=== PATIENT | female | born 1970 | race Caucasian/White ===

== ENCOUNTER 2021-02-21 09:22 | Emergency (ER) | payer OTHER, SELFPAY ==
[2021-02-21 09:23] VITALS: BP 152/85; PULSE 103; RESP 22; TEMP 36.6; O2SAT 98; BMI 41.5
--- NOTE | 2021-02-21 09:40 | VDLE_ITS ---
Reason For Study: Swelling Procedure LEFT This is a venous duplex using B-mode, color GSV is normal. flow and spectral Doppler. CFV is compressible, spontaneous, phasic, Exam performed portable in ED. competent, and demonstrates normal A preliminary report was called and/or faxed augmentation. to [facility]. FV is compressible, spontaneous, phasic, competent and demonstrates normal augmentation. POP V is compressible, spontaneous, phasic, competent and demonstrates normal augmentation. T/P Trunk is compressible. PTV is compressible. LT PerV is compressible. VL/Venous Duplex US, Unilateral Interpretation Summary There is no evidence of left lower extremity deep vein thrombosis. Left great s aphenous vein appears patent and compressible segmentally. Ordering Physician: Jose Alberto Lang Performed By: Brunilda Casas RVT
--- NOTE | 2021-02-21 09:44 | EX.ED.DYSGE1 ---
HPI History of Present Illness Chief Complaint: Edema Informant: patient Onset/Context/Timing Onset: Days Context: Gradual Onset Timing: Continuous Current Severity: Mild Maximum Severity: Mild Narrative Narrative: 50-year-old female has a history of orthostatic hypotension, fibromyalgia, gastroparesis, prior DVTs on Xarelto and nutcracker syndrome. Patient states she has had swelling in her left leg for some time is gotten worse. She has had prior DVTs. She is currently on a blood thinner but wants to be evaluated. She denies any chest pain. Also states she has a headache and would like something for that. Also believes she needs IV fluids. Prior similar symptoms: Yes Recent Illness/Hospitalization: No [facility] Medical History (Updated 02/21/21 @ 10:[address] Jose Alberto Lang MD) Anxiety Depression Fibromyalgia Gastroparesis Hypothyroid Home Medications alprazolam [Xanax] 0.5 mg PO BID PRN 02/21/21 [History Last Taken Unknown] amitriptyline 75 mg PO DAILY 02/21/21 [History Last Taken Unknown] buspirone 10 mg PO TID 02/21/21 [History Last Taken Unknown] celecoxib [Celebrex] 100 mg PO BID 02/21/21 [History Last Taken Unknown] cyclobenzaprine [Flexeril] 5 mg PO TID PRN 02/21/21 [History Last Taken Unknown] duloxetine [Cymbalta] 120 mg PO DAILY 02/21/21 [History Last Taken Unknown] levothyroxine [Synthroid] 50 mcg PO DAILY 02/21/21 [History Last Taken Unknown] montelukast [Singulair] 10 mg PO DAILY 02/21/21 [History Last Taken Unknown] rivaroxaban [Xarelto] 20 mg PO DAILY 02/21/21 [History Last Taken Unknown] trazodone 150 mg PO QHS 02/21/21 [History Last Taken Unknown] Allergy/AdvReac Type Severity Reaction Status Date / Time Sulfa (Sulfonamide Allergy Anaphylaxis Verified 02/21/21 09:26 Antibiotics) Social History Smoking Status: Never smoker ROS ROS ED ROS Narrative Headache. Left leg swelling. Review of Systems ROS Unobtainable: Denies due to encephalopathy Constitutional Constitutional ED: Reports fever(s) and subjective Eyes Eyes: Denies change in vision ENT ENT ED: Denies ear pain Cardiovascular Cardiovascular: Denies chest pain Respiratory/Chest Respiratory/Chest: Denies cough or dyspnea Gastrointestinal Gastrointestinal: Denies abdominal pain Genitourinary Genitourinary ED: Denies dysuria Musculoskeletal Musculoskeletal: Denies myalgias Integumentary Denies rash Neurologic Neurologic: Reports headache(s) Psychiatric Psychiatric: Denies depression Endocrine Endocrinology: Denies polyuria Allergic/Immunologic Allergic/Immunologic ED: Denies urticaria EXAM Physical Exam Narrative Exam Narrative: Treatment no acute distress vital signs stable afebrile. HEENT exam unremarkable. Moist mucous memories. Neck nontender no lymphadenopathy. Lungs clear to auscultation bilaterally. Heart regular rhythm no murmur. Abdomen soft nontender normal bowel sounds no peritoneal signs. Moving all 4 extremities neurovascular intact. Left leg has trace edema compared to the right. Both lower extremities are neurovascular intact with normal motor strength and sensation. Normal range of motion. There is no cords. Neurologically she is awake alert with no focal motor deficits. Const Vital Signs: 02/21/21 09:23 02/21/21 10:12 Temperature 97.9 F Temperature Source Temporal Pulse Rate 103 H Respiratory Rate 22 H Respiratory Effort Normal Non-Labored Respiratory Pattern Normal Blood Pressure 152/85 H Blood Pressure Mean 107 Pulse Ox 98 Oxygen Delivery Method Room Air Positive well nourished, well developed and obese; Negative for cachectic, contractures or unkempt General Appearance ED: well developed and NAD; Negative for unkempt, cachectic, contractures, cyanotic or diaphoretic Nutritional Appearance: obese; Negative for cachectic HEENT Reports moist mucous membranes Negative for trauma or tenderness Eyes PERRL and EOMs intact bilaterally Neck no lymphadenopathy, supple and no JVD General: Negative for tenderness Chest Wall inspection of chest normal and palpation of chest normal Resp normal respiratory effort and clear to auscultation bilaterally Auscultation: Negative for rales, rhonchi or wheezes Cardio regular rate, regular rhythm, S1 normal heart sound, S2 normal heart sound and no murmurs GI normal to inspection, nondistended, normoactive bowel sounds, non-tender, non-distended and no masses Auscultation: normoactive bowel sounds Palpation: soft; Negative for tender, guarding or rebound tenderness present Back/Spine no CVA tenderness General Back: Negative for CVA tenderness Extremity normal to inspection Extremity Narrative: Trace edema and tenderness left lower leg. Both lower extremities are neurovascular intact with normal motor strength and sensation. No cellulitis. General Extremety ED: Yes edema and tenderness General Extremity: edema Neuro oriented x3 Sensorium / Orientation: alert; Negative for orientation impaired, lethargic or stuporous Motor Exam: strength 5/5 throughout Psych mental status grossly normal Appearance: Negative for unkempt Mood & Affect: Negative for depressed or tearful Skin no rashes or lesions noted and no wounds MDM MDM MDM Narrative Medical decision making narrative: 50-year-old left lower extremity swelling with a history of DVTs. Ultrasound being obtained. I do not know if that will clinically change anything because she is already on Xarelto. He is also requesting IV fluids and something for headache she will be given p.o. Tylenol. And a liter normal saline. Clinically her exam is benign. She does not need any labs at this time. Repeat exam patient is doing well at 10:50 AM and will be discharged home. Lab Data Attestation: I reviewed the patient's lab results. Radiography Diagnostic Testing: Present loss control technician the ultrasound noninvasive study of the left lower extremity showed no DVT. Discussed results with the patient. Discharge Plan Triage Chief Complaint: Edema ED Provider: Jose Alberto Lang Dx/Rx/DC Orders Clinical Impression: Edema of left lower extremity Instructions: ED Peripheral Edema, Unilateral Prescriptions: No Action amitriptyline 75 mg Tablet 75 mg PO DAILY RF: 0 alprazolam [Xanax] 0.5 mg Tablet 0.5 mg PO BID PRN (Reason: Anxiety) RF: 0 levothyroxine [Synthroid] 50 mcg Tablet 50 mcg PO DAILY RF: 0 trazodone 150 mg Tablet 150 mg PO QHS RF: 0 buspirone 10 mg Tablet 10 mg PO TID RF: 0 montelukast [Singulair] 10 mg Tablet 10 mg PO DAILY RF: 0 celecoxib [Celebrex] 100 mg Capsule 100 mg PO BID RF: 0 cyclobenzaprine [Flexeril] 5 mg Tablet 5 mg PO TID PRN (Reason: muscle spasms) RF: 0 duloxetine [Cymbalta] 60 mg Capsule,Delayed Release(Dr/Ec) 120 mg PO DAILY RF: 0 Xarelto 20 mg Tablet 20 mg PO DAILY RF: 0 Referrals: Erik Bradley [Other] (Follow-up with your doctor as needed.) Activity Restrictions/Additional Instructions: Continue current medications. Follow-up with your doctor as needed. Your leg noninvasive study showed no DVT. Disposition Disposition: Home, Self Care
[2021-02-21] MEDS: Acetaminophen 500 MG Tablet 1000 MG PO (10:03)
[2021-02-21] MEDS: 0.9% Normal Saline 1,000 ML 1000 ML IV (10:03)
--- NOTE | 2021-02-21 10:34 | ED.RN ---
pt has multiple places on both arms where per her people had been starting ivs. pt stated that she is a hard stick and she had a test done recently. Pt is [place] and has been in the area since november
[2021-02-21] MEDS: Ketorolac 30 MG/ML Syringe IV (11:10)
[2021-02-21 11:16] VITALS: PULSE 84; RESP 16; O2SAT 97
== END 2021-02-21 11:17 | disposition home or self-care (01) ==
PROVIDERS: Emergency Provider Emergency Medicine
DX: R60.0 Localized edema (principal); R51.9 Headache, unspecified; E66.9 Obesity, unspecified; F41.9 Anxiety disorder, unspecified; F32.A Depression, unspecified; E03.9 Hypothyroidism, unspecified; M79.7 Fibromyalgia; K31.84 Gastroparesis; Z79.01 Long term (current) use of anticoagulants; Z79.1 Long term (current) use of non-steroidal anti-inflammatories (NSAID); Z79.899 Other long term (current) drug therapy; Z86.718 Personal history of other venous thrombosis and embolism
CPT/HCPCS: 93971; 96361; 96374; 99284; J7030; A4216

== ENCOUNTER 2021-02-28 13:12 | Emergency (ER) | payer OTHER, SELFPAY ==
[2021-02-28 13:13] VITALS: BP 113/84; PULSE 103; RESP 16; TEMP 35.9; O2SAT 98; BMI 41.5
--- NOTE | 2021-02-28 15:27 | RAD_ITS ---
STUDY: X-RAY CHEST REASON FOR EXAM: Female, 50 years old. cough TECHNIQUE: AP COMPARISON: None. FINDINGS: EKG leads project over the chest. The lungs are clear and expanded. There is no demonstrated pleural abnormality. Normal size heart. Normal mediastinum and kody. Normal visualized pulmonary arteries. Normal visualized aortic arch and descending thoracic aorta. Normal visualized thoracic spine. Normal visualized ribs, clavicles, and shoulders. There is no demonstrated abnormality of the visualized soft tissue structures of the upper abdomen. RAD/Chest 1 View (Portable) IMPRESSION: Nonacute portable x-ray examination of the chest. Electronically Signed: Kang Wallace MD ([place]) at 16:11 EST , Service support ,
--- NOTE | 2021-02-28 15:28 | EDS_ITS ---
HPI History of Present Illness Chief Complaint: Shortness of Breath Narrative Narrative: 50-year-old male with history of unprovoked DVT and PEs fully anticoagulated on Xarelto 20 mg p.o. daily presenting with shortness of breath with ambulation. She states her pulse ox will drop to 84 when she walks and she does feel short of breath however when she sits down her oxygen rebounds. Patient states that she was monitoring her heart rate loss as she typically does and noted that her oxygen was dropping. She does complain of a little bit of chest tightness intermittently while she is walking. She has not been diaphoretic or lightheaded. She denies chest pressure. Patient does feel a little bit rundown this week. She denies having a fever, chills, change in taste or smell. She has chronic body aches due to fibromyalgia and is not sure if it is worse. [facility] Medical History Anxiety Depression Fibromyalgia Gastroparesis Hypothyroid Home Medications alprazolam [Xanax] 0.5 mg PO BID PRN 02/21/21 [History Last Taken Unknown] amitriptyline 75 mg PO DAILY 02/21/21 [History Last Taken Unknown] buspirone 10 mg PO TID 02/21/21 [History Last Taken Unknown] celecoxib [Celebrex] 100 mg PO BID 02/21/21 [History Last Taken Unknown] cyclobenzaprine [Flexeril] 5 mg PO TID PRN 02/21/21 [History Last Taken Unknown] duloxetine [Cymbalta] 120 mg PO DAILY 02/21/21 [History Last Taken Unknown] levothyroxine [Synthroid] 50 mcg PO DAILY 02/21/21 [History Last Taken Unknown] montelukast [Singulair] 10 mg PO DAILY 02/21/21 [History Last Taken Unknown] rivaroxaban [Xarelto] 20 mg PO DAILY 02/21/21 [History Last Taken Unknown] trazodone 150 mg PO QHS 02/21/21 [History Last Taken Unknown] dexamethasone 6 mg PO DAILY #7 tab 02/28/21 [Rx Last Taken Unknown] Allergy/AdvReac Type Severity Reaction Status Date / Time Sulfa (Sulfonamide Allergy Anaphylaxis Verified 02/28/21 13:18 Antibiotics) Social History Smoking Status: Never smoker ROS ROS ED Constitutional Constitutional ED: Reports other Details: Fatigue ; Denies chills or fever(s) Eyes Eyes: Denies blurry vision or diplopia ENT ENT ED: Denies rhinorrhea or sore throat Cardiovascular Cardiovascular: Reports chest pain Respiratory/Chest Respiratory/Chest: Reports dyspnea and dyspnea on exertion; Denies cough Gastrointestinal Gastrointestinal: Reports other Details: Chronic diarrhea unchanged ; Denies abdominal pain, nausea or vomiting Genitourinary Genitourinary ED: Denies dysuria or hematuria Musculoskeletal Musculoskeletal: Reports myalgias; Denies arthralgias or neck pain Integumentary Denies rash Neurologic Neurologic: Denies headache(s) or paresthesias Psychiatric Psychiatric: Denies anxiety or depression EXAM Physical Exam Const Vital Signs: 02/28/21 13:13 02/28/21 16:03 02/28/21 16:04 Temperature 96.7 F L Temperature Source Temporal Pulse Rate 103 H 101 H Respiratory Rate 16 17 Respiratory Effort Normal Non-Labored Respiratory Depth Normal Respiratory Pattern Normal Blood Pressure 113/84 H Blood Pressure Mean 93 Pulse Ox 98 98 Oxygen Delivery Method Room Air Room Air 02/28/21 16:28 02/28/21 17:04 02/28/21 19:01 Temperature Temperature Source Pulse Rate 102 H 104 H Respiratory Rate 17 18 Respiratory Effort Respiratory Depth Respiratory Pattern Blood Pressure 119/68 122/73 H Blood Pressure Mean 85 Pulse Ox 98 98 98 Oxygen Delivery Method Room Air Room Air Positive well nourished General Appearance ED: NAD HEENT Reports moist mucous membranes atraumatic Eyes PERRL and EOMs intact bilaterally Resp normal respiratory effort and clear to auscultation bilaterally Cardio regular rhythm Rate: tachycardic MDM MDM MDM Narrative Medical decision making narrative: Patient presenting with hypoxia. She states she feels otherwise well. She does state that she does not go out much and she is not concerned for COVID-19. EKG on my interpretation is sinus rhythm with a ventricular rate of 90 bpm without time ischemic change or dysrhythmia. Chest x-ray on my interpretation shows no acute cardiopulmonary process. Radiologist does agree. CBC shows slight leukocytosis of 11.1. Otherwise hemoglobin Hockert platelets are normal. Patient's CMP is normal. BNP is 4.1. Her rapid Covid testing was negative. But since she is hypoxic and dropping down to the 80s when ambulating I did order a PCR test. Patient while waiting did state that she wanted to sign out AMA and go back to [facility] where she is from, however at that very moment her Covid test came back positive. For this reason I will start her on Decadron and set her up for home oxygen. Patient was amenable to this. I do not believe the patient needs a CTA of the chest because she is anticoagulated and I have low suspicion for PE. Patient is counseled to monitor her pulse ox which she already does. She is discharged home in stable condition. Impression: 1. COVID-19 pneumonitis 2. Hypoxic respiratory failure Lab Data Attestation: I reviewed the patient's lab results. Labs: Laboratory Results - last 24 hr 02/28/21 02/28/21 02/28/21 16:00 16:00 16:00 WBC 11.1 H RBC 5.26 Hgb 16.4 H Hct 49.0 H MCV 93.2 MCH 31.2 MCHC 33.5 RDW Std Deviation 40.7 RDW Coeff of Sylvie 11.8 Plt Count 324 MPV 8.8 Immature Gran % (Auto) 0.500 Neut % (Auto) 60.5 Lymph % (Auto) 32.4 White % (Auto) 5.0 Eos % (Auto) 1.1 Baso % (Auto) 0.5 Absolute Neuts (auto) 6.7 Absolute Lymphs (auto) 3.59 Nucleated RBC % 0 Sodium 136 Potassium 3.7 Chloride 100 Carbon Dioxide 29.0 Anion Gap 7 BUN 14 Creatinine 1.06 H Estim Creat Clear Calc 46.85 Est GFR (MDRD) Af Amer 70 Est GFR (MDRD) Non-Af 58 L BUN/Creatinine Ratio 13.2 Glucose 87 Calcium 9.7 Total Bilirubin 0.70 AST 24 ALT 31 Alkaline Phosphatase 69 Troponin I High Sens 17 B-Natriuretic Peptide 4.1 Total Protein 8.8 H Albumin 4.2 Globulin 4.6 H Albumin/Globulin Ratio 0.9 COVID-19 (JERRI) 02/28/21 16:00 WBC RBC Hgb Hct MCV MCH MCHC RDW Std Deviation RDW Coeff of Sylvie Plt Count MPV Immature Gran % (Auto) Neut % (Auto) Lymph % (Auto) White % (Auto) Eos % (Auto) Baso % (Auto) Absolute Neuts (auto) Absolute Lymphs (auto) Nucleated RBC % Sodium Potassium Chloride Carbon Dioxide Anion Gap BUN Creatinine Estim Creat Clear Calc Est GFR (MDRD) Af Amer Est GFR (MDRD) Non-Af BUN/Creatinine Ratio Glucose Calcium Total Bilirubin AST ALT Alkaline Phosphatase Troponin I High Sens B-Natriuretic Peptide Total Protein Albumin Globulin Albumin/Globulin Ratio COVID-19 (JERRI) Positive Radiography Diagnostic Testing: Clinical Impression(s) from Imaging Studies Chest X-Ray 02/28/21 15:27 IMPRESSION: Nonacute portable x-ray examination of the chest. Electronically Signed: Kang Wallace MD ([place]) at 16:11 EST , Service support , Discharge Plan Triage Chief Complaint: Shortness of Breath ED Provider: Rob Marquez Dx/Rx/DC Orders Instructions: Coronavirus Disease 2019 (COVID-19): Caring for Yourself or Others Prescriptions: New dexamethasone 6 mg tablet 6 mg PO DAILY Qty: 7 RF: 0 No Action amitriptyline 75 mg Tablet 75 mg PO DAILY RF: 0 alprazolam [Xanax] 0.5 mg Tablet 0.5 mg PO BID PRN (Reason: Anxiety) RF: 0 levothyroxine [Synthroid] 50 mcg Tablet 50 mcg PO DAILY RF: 0 trazodone 150 mg Tablet 150 mg PO QHS RF: 0 buspirone 10 mg Tablet 10 mg PO TID RF: 0 montelukast [Singulair] 10 mg Tablet 10 mg PO DAILY RF: 0 celecoxib [Celebrex] 100 mg Capsule 100 mg PO BID RF: 0 cyclobenzaprine [Flexeril] 5 mg Tablet 5 mg PO TID PRN (Reason: muscle spasms) RF: 0 duloxetine [Cymbalta] 60 mg Capsule,Delayed Release(Dr/Ec) 120 mg PO DAILY RF: 0 Xarelto 20 mg Tablet 20 mg PO DAILY RF: 0 Referrals: OLIVIA HINES [Other] Disposition Disposition: Home, Self Care Discharge Date/Time: 02/28/21 19:02
--- NOTE | 2021-02-28 15:31 | EKG12_ITS ---
Test Reason : Blood Pressure : / mmHG Vent. Rate : 099 BPM Atrial Rate : 099 BPM P-R Int : 144 ms QRS Dur : 088 ms QT Int : 350 ms P-R-T Axes : 053 051 001 degrees QTc Int : 449 ms Normal sinus rhythm Normal ECG Confirmed by JACQUES GONZALEZ, KATTY ([id number]), editorial writer CHIKA ARMENTA ([id number]) on 03/02/2021 8:22:30 AM Referred By: LAURA Confirmed By:KATTY HANNA MD
[2021-02-28 16:03] VITALS: PULSE 101; RESP 17; O2SAT 98
[2021-02-28] MEDS: Morphine 4 MG/ML Syringe IV (16:17)
[2021-02-28] MEDS: Ondansetron 4 MG/2 ML Vial IV (16:17)
[2021-02-28 16:19] LABS: Absolute Lymphocyte Count 3.59 X10^3/uL (0.83-4.51); Absolute Neutrophil Count 6.7 X10^3/uL (2.0-7.7); Basophil# 0.06 X10^3/uL; Basophil% 0.5 % (0-1); Eosinophil# 0.12 X10^3/uL; Eosinophils% 1.1 % (0-5); Hemoglobin 16.4 g/dL (12.0-15.0); Lymphocyte # 3.59 X10^3/ul (0.83-4.51); Lymphocyte % 32.4 % (19-41); Mean Corp Hgb Conc 33.5 g/dL (32-36); Mean Corpuscular Hgb 31.2 pg (27.0-32.0); Mean Corpuscular Volume 93.2 fL (81-99); Mean Platelet Vol. 8.8 fl (6.2-12.0); Monocyte# 0.55 X10^3/uL; NRBC Flagged by Analyzer 0 % (0-5); Neutrophil % 60.5 % (47-70); Platelet Count 324 K/mm3 (150-450); RBC Distribution Width CV 11.8 % (11.6-14.6); RBC Distribution Width SD 40.7 fl (35.1-43.9); Red Blood Count 5.26 M/mm3 (4.2-5.4); White Blood Count 11.1 K/mm3 (4.4-11.0)
[2021-02-28 16:28] VITALS: BP 119/68; PULSE 102; RESP 17; O2SAT 98
[2021-02-28 16:29] LABS: ALB/GLOB Ratio 0.9 RATIO (0.9-2.4); AST(SGOT) 24 U/L (15-37); Alanine Aminotransfer ALT/SGPT 31 U/L (13-56); Albumin, Serum 4.2 g/dL (3.2-5.0); Alkaline Phosphatase 69 U/L (45-117); Anion Gap 7 (5-15); BUN 14 mg/dL (7-18); BUN/Creat Ratio 13.2 RATIO (10-20); Calcium,Total 9.7 mg/dL (8.5-10.1); Chloride 100 mmol/L (98-107); Creatinine, Serum 1.06 mg/dL (0.55-1.02); EST Glomerular Filtration Rate 58 mL/min (>60); Est Glom Filt Rate - Afr Amer 70 mL/min (>60); Estimated Creatinine Clearance 46.85 ml/min; Globulin 4.6 g/dL (2.2-4.2); Glucose 87 mg/dL (74-106); Potassium 3.7 mmol/L (3.5-5.1); Protein, Total 8.8 g/dL (6.4-8.2); Sodium Level 136 mmol/L (136-145); Troponin-I HS 17 pg/mL (3.0-54.0)
[2021-02-28 16:40] LABS: BNP,B-Type NATRIURETIC PEPTIDE 4.1 pg/mL (0-100)
[2021-02-28 17:04] VITALS: O2SAT 98
[2021-02-28 17:12] VITALS: O2SAT 96
[2021-02-28 18:07] LABS: Probe Check PASS
--- NOTE | 2021-02-28 18:58 | CM.ED ---
Addendum entered by Iveth Ackerman 02/28/21 20:39: Patient was advised this information when the JERICHO Rider was present. Patient advised no issues or concerns. Iveth GODDARD Original Note: RAÚL Note Referral Source: MD Referral Reason: Home oxygen SW was advised by MD that patient needs home oxygen. SW spoke to patient and she reports she did not know she was hypoxic till she took her pulseomter. Patient said that she feels she would be fine to drive home tomorrow without oxygen. RAÚL spoke to JERICHO Rider and patient did not qualify for home oxygen. MD was updated. Due to patient not being hypoxic in the hospital she does not qualify for home oxygen. RAÚL called patient and advised that she does not qualify for home oxygen but if she is having issues to call the PCP at home. Patient verbalized understanding. Plan: Home. Does not qualify for home oxygen Iveth GODDARD
[2021-02-28 19:01] VITALS: BP 122/73; PULSE 104; RESP 18; O2SAT 98
[2021-02-28] MEDS: dexAMETHasone 10 MG/ML Vial 6 MG IV (19:01)
== END 2021-02-28 19:02 | disposition home or self-care (01) ==
PROVIDERS: Emergency Provider Student in an Organized Health Care Education/Training Program
DX: U07.1 COVID-19 (principal); J12.82 Pneumonia due to coronavirus disease 2019; J96.91 Respiratory failure, unspecified with hypoxia; F41.9 Anxiety disorder, unspecified; M79.7 Fibromyalgia; E03.9 Hypothyroidism, unspecified; K31.84 Gastroparesis; F32.A Depression, unspecified; Z79.01 Long term (current) use of anticoagulants; Z79.1 Long term (current) use of non-steroidal anti-inflammatories (NSAID); Z79.52 Long term (current) use of systemic steroids; Z86.718 Personal history of other venous thrombosis and embolism
CPT/HCPCS: 71045; 80053; 83880; 84484; 85025; 87426; 87635; 93005; 96374; 96375; 99284; U0005; A4216; J2405; U0003

== ENCOUNTER 2021-04-05 10:04 | Emergency (ER) | payer OTHER, SELFPAY ==
[2021-04-05 10:05] VITALS: BP 130/66; PULSE 110; RESP 18; TEMP 36.6; O2SAT 98; BMI 42.5
--- NOTE | 2021-04-05 10:31 | ED.VIS.FEGU ---
HPI HPI - Female History of Present Illness Chief Complaint: Complaint Narrative Narrative: 50-year-old female presenting with bilateral lower back pain bladder pressure and dysuria. She states her urine is foul-smelling. She has not had a fever but does feel rundown. She was seen at the urgent care and sent over here for evaluation. Patient has history of UTI and kidney stones. She is not had a fever but she does admit to some nausea. Patient had Covid about a month ago and recovered from this. She is not really complaining of shortness of breath or chest pain. PFSH PFSH Medical History Anxiety Depression Fibromyalgia Gastroparesis Hypothyroid Home Medications alprazolam [Xanax] 0.5 mg PO BID PRN 02/21/21 [History Last Taken Unknown] amitriptyline 75 mg PO DAILY 02/21/21 [History Last Taken Unknown] buspirone 10 mg PO TID 02/21/21 [History Last Taken Unknown] celecoxib [Celebrex] 100 mg PO BID 02/21/21 [History Last Taken Unknown] cyclobenzaprine [Flexeril] 5 mg PO TID PRN 02/21/21 [History Last Taken Unknown] duloxetine [Cymbalta] 120 mg PO DAILY 02/21/21 [History Last Taken Unknown] levothyroxine [Synthroid] 50 mcg PO DAILY 02/21/21 [History Last Taken Unknown] montelukast [Singulair] 10 mg PO DAILY 02/21/21 [History Last Taken Unknown] rivaroxaban [Xarelto] 20 mg PO DAILY 02/21/21 [History Last Taken Unknown] trazodone 150 mg PO QHS 02/21/21 [History Last Taken Unknown] dexamethasone 6 mg PO DAILY #7 tab 02/28/21 [Rx Last Taken Unknown] tizanidine [Zanaflex] 4 mg PO Q8H PRN #10 cap 04/05/21 [Rx Last Taken Unknown] Allergy/AdvReac Type Severity Reaction Status Date / Time Sulfa (Sulfonamide Allergy Anaphylaxis Verified 04/05/21 10:06 Antibiotics) Social History Smoking Status: Never smoker ROS ROS ED Constitutional Constitutional ED: Reports chills; Denies fever(s) Eyes Eyes: Denies blurry vision or diplopia ENT ENT ED: Denies rhinorrhea or sore throat Cardiovascular Cardiovascular: Denies chest pain or palpitations Respiratory/Chest Respiratory/Chest: Denies cough or dyspnea Gastrointestinal Gastrointestinal: Reports abdominal pain and nausea Genitourinary Genitourinary ED: Reports dysuria and urinary frequency Musculoskeletal Musculoskeletal: Denies arthralgias or myalgias Integumentary Denies Abrasions or rash Neurologic Neurologic: Reports headache(s); Denies paresthesias or weakness EXAM Physical Exam Const Vital Signs: 04/05/21 10:05 Temperature 97.9 F Temperature Source Temporal Pulse Rate 110 H Respiratory Rate 18 Blood Pressure 130/66 H Blood Pressure Mean 87 Pulse Ox 98 Oxygen Delivery Method Room Air Positive obese General Appearance ED: NAD; Negative for pallor Nutritional Appearance: obese HEENT Reports moist mucous membranes Negative for trauma Eyes PERRL and EOMs intact bilaterally Resp normal respiratory effort and clear to auscultation bilaterally Cardio regular rhythm Rate: tachycardic Back/Spine Back/Spine Narrative: Bilateral lower paraspinal musculature back pain without CVA tenderness. No midline spinal deformity or step-off. Neuro oriented x3 Sensorium / Orientation: alert Psych mental status grossly normal Skin General Skin Exam: Negative for jaundice or pallor MDM MDM MDM Narrative Medical decision making narrative: Patient with interstitial cystitis presenting with urinary frequency and dysuria. She also complains of back pain but does not have CVA tenderness. She has more of muscular tenderness in the lumbar spine. Her urinalysis is negative for infection. CBC shows no leukocytosis and hemoglobin hematocrit are stable. Renal function and electrolytes at baseline. CT of the abdomen pelvis was performed to rule out renal calculi and this is negative for acute findings. Patient counseled on findings. She states he is currently living here and is from [place]. She is offered local urology to follow-up with but she declines. I counseled her I will send a urine culture. Patient will be given muscle relaxer for her back pain. Impression: 1. Lumbar strain 2. Dysuria Lab Data Labs: Laboratory Results - last 24 hr 04/05/21 04/05/21 04/05/21 10:45 11:05 11:05 WBC 6.0 RBC 4.72 Hgb 14.7 Hct 43.7 MCV 92.6 MCH 31.1 MCHC 33.6 RDW Std Deviation 38.8 RDW Coeff of Sylvie 11.5 L Plt Count 265 MPV 8.6 Immature Gran % (Auto) 0.500 Neut % (Auto) 65.7 Lymph % (Auto) 26.3 [place] % (Auto) 5.5 Eos % (Auto) 1.3 Baso % (Auto) 0.7 Absolute Neuts (auto) 3.9 Absolute Lymphs (auto) 1.58 Nucleated RBC % 0 Sodium 139 Potassium 4.3 Chloride 105 Carbon Dioxide 27.0 Anion Gap 7 BUN 12 Creatinine 1.11 H Estim Creat Clear Calc 44.74 Est GFR (MDRD) Af Amer 66 Est GFR (MDRD) Non-Af 55 L BUN/Creatinine Ratio 10.8 Glucose 158 H Calcium 9.4 Urine Color Yellow Urine Clarity Clear Urine pH 5.0 Ur Specific [place] 1.025 Urine Protein 30 H Urine Glucose (UA) Normal Urine Ketones Negative Urine Occult Blood 10 H Urine Nitrite Negative Urine Bilirubin Negative Urine Urobilinogen Normal Ur Leukocyte Esterase 25 H Urine RBC 0 SEEN Urine WBC 0-5 SEEN Ur Squamous Epith Cells 5-10 SEEN Urine Bacteria 1+ Fine Granular Casts 0-5 SEEN Urine Mucus 0 SEEN Radiography Diagnostic Testing: Clinical Impression(s) from Imaging Studies Abdomen/Pelvis CT 04/05/21 10:32 IMPRESSION: No renal or ureteral stone. Electronically Signed: Carlos Guerin MD at 11:47 EST Tel , Service support , Discharge Plan Triage Chief Complaint: Complaint ED Provider: Rob Marquez Dx/Rx/DC Orders Instructions: ED Back Sprain/Strain, ED Dysuria Uncertain Cause Ch Prescriptions: New tizanidine [Zanaflex] 4 mg capsule 4 mg PO Q8H PRN (Reason: muscle spasticity) Qty: 10 RF: 0 No Action amitriptyline 75 mg Tablet 75 mg PO DAILY RF: 0 alprazolam [Xanax] 0.5 mg Tablet 0.5 mg PO BID PRN (Reason: Anxiety) RF: 0 levothyroxine [Synthroid] 50 mcg Tablet 50 mcg PO DAILY RF: 0 trazodone 150 mg Tablet 150 mg PO QHS RF: 0 buspirone 10 mg Tablet 10 mg PO TID RF: 0 montelukast [Singulair] 10 mg Tablet 10 mg PO DAILY RF: 0 celecoxib [Celebrex] 100 mg Capsule 100 mg PO BID RF: 0 cyclobenzaprine [Flexeril] 5 mg Tablet 5 mg PO TID PRN (Reason: muscle spasms) RF: 0 duloxetine [Cymbalta] 60 mg Capsule,Delayed Release(Dr/Ec) 120 mg PO DAILY RF: 0 Xarelto 20 mg Tablet 20 mg PO DAILY RF: 0 dexamethasone 6 mg tablet 6 mg PO DAILY Qty: 7 RF: 0 Primary Care Provider: [facility],Out of Referrals: [facility],Out of [Primary Care Provider] - Disposition Disposition: Home, Self Care
--- NOTE | 2021-04-05 10:32 | CT_ITS ---
STUDY: CT ABDOMEN AND PELVIS WITHOUT CONTRAST REASON FOR EXAM: Female, 50 years old. flank pain RADIATION DOSAGE (If Supplied By Facility): CTDIvol = ( 20.74 ) mGy, DLP = ( 1046.90 ) mGycm TECHNIQUE: Transaxial images were obtained from the dome of the diaphragm to the symphysis pubis without oral contrast, and without intravenous contrast. Sagittal and coronal images were reconstructed. Individualized dose optimization techniques were used for this CT. COMPARISON: None. FINDINGS: The visualized lung bases are unremarkable. The visualized portions of the heart are within normal limits. Normal liver. There are surgical clips in the gallbladder fossa consistent with a prior cholecystectomy. Normal spleen. Normal pancreas. Normal bilateral adrenal glands. Normal right kidney. Normal left kidney. Normal visualized stomach. Normal small intestine. Suspect left hemicolectomy. There is non-visualization of the appendix. Normal abdominal aorta. Normal inferior vena cava. Normal retroperitoneum. Normal urinary bladder. Normal abdominal wall. Status post discectomy, interbody fusion, transpedicular fixation at L5/S1. CT/Abdomen/Pelvis without Cont IMPRESSION: No renal or ureteral stone. Electronically Signed: Carlos Guerin MD at 11:47 EST Tel , Service support ,
[2021-04-05 10:59] LABS: Mucous, Urine 0 SEEN /hpf (<or=2+); Red Blood Cells-Urine 0 SEEN /hpf (0-5)
[2021-04-05 11:08] LABS: Color, Urine Yellow (Yellow); Glucose, Dipstick Normal (Normal); Ketone-Dipstick Negative (Negative); Leukocyte Esterase-Dipstick 25 /ul (Negative); Nitrite-Dipstick Negative (Negative); Occult Blood-Urine 10 /ul (Negative); Protein-Dipstick 30 mg/dl (Negative); Specific Gravity, Urine 1.025 (1.002-1.030); Urine Bilirubin Dipstick Negative (Negative); Urine Clarity Clear (Clear); Urine Urobilinogen Normal (Normal)
[2021-04-05] MEDS: Ondansetron 4 MG/2 ML Vial IV (11:10)
[2021-04-05] MEDS: Morphine 4 MG/ML Syringe IV (11:10)
[2021-04-05] MEDS: 0.9% Normal Saline 1,000 ML 999 ML IV (11:11)
[2021-04-05 11:15] LABS: Bacteria 1+ /hpf (None Seen); Squamous Epithelial Cells - UA 5-10 SEEN /hpf (5-10); White Blood Cells 0-5 SEEN /hpf (0-5)
[2021-04-05 11:16] LABS: Fine Granular Cast- Urine 0-5 SEEN /lpf (0-5)
[2021-04-05 11:20] LABS: Absolute Lymphocyte Count 1.58 X10^3/uL (0.83-4.51); Absolute Neutrophil Count 3.9 X10^3/uL (2.0-7.7); Basophil# 0.04 X10^3/uL; Basophil% 0.7 % (0-1); Eosinophil# 0.08 X10^3/uL; Eosinophils% 1.3 % (0-5); Hematocrit 43.7 % (37-47); Hemoglobin 14.7 g/dL (12.0-15.0); Lymphocyte # 1.58 X10^3/ul (0.83-4.51); Lymphocyte % 26.3 % (19-41); Mean Corp Hgb Conc 33.6 g/dL (32-36); Mean Corpuscular Hgb 31.1 pg (27.0-32.0); Mean Corpuscular Volume 92.6 fL (81-99); Mean Platelet Vol. 8.6 fl (6.2-12.0); Monocyte# 0.33 X10^3/uL; Monocyte% 5.5 % (0-10); NRBC Flagged by Analyzer 0 % (0-5); Neutrophil # 3.94 X10^3/uL (2.7-7.7); Neutrophil % 65.7 % (47-70); Platelet Count 265 K/mm3 (150-450); RBC Distribution Width CV 11.5 % (11.6-14.6); RBC Distribution Width SD 38.8 fl (35.1-43.9); Red Blood Count 4.72 M/mm3 (4.2-5.4)
[2021-04-05 11:33] LABS: Anion Gap 7 (5-15); BUN 12 mg/dL (7-18); BUN/Creat Ratio 10.8 RATIO (10-20); Calcium,Total 9.4 mg/dL (8.5-10.1); Chloride 105 mmol/L (98-107); Creatinine, Serum 1.11 mg/dL (0.55-1.02); EST Glomerular Filtration Rate 55 mL/min (>60); Est Glom Filt Rate - Afr Amer 66 mL/min (>60); Estimated Creatinine Clearance 44.74 ml/min; Glucose 158 mg/dL (74-106); Potassium 4.3 mmol/L (3.5-5.1); Sodium Level 139 mmol/L (136-145)
[2021-04-05 12:34] VITALS: BP 111/78; PULSE 95
== END 2021-04-05 12:35 | disposition home or self-care (01) ==
PROVIDERS: Emergency Provider Student in an Organized Health Care Education/Training Program; Visit Provider Student in an Organized Health Care Education/Training Program
DX: S39.012A Strain of muscle, fascia and tendon of lower back, initial encounter (principal); R30.0 Dysuria; E66.9 Obesity, unspecified; X58.XXXA Exposure to other specified factors, initial encounter
CPT/HCPCS: 74176; 80048; 81001; 85025; 87086; 87088; 96361; 96374; 96375; 99285; J7030; J2405

== ENCOUNTER → 2023-07-09 | Outpatient (CLI) | payer OTHER, SELFPAY | END | disposition home or self-care (01) | LOC: LAB 09:50 | DX: R19.7 Diarrhea, unspecified (principal) ==